=== PATIENT | female | born 1995 | race Caucasian/White ===

== ENCOUNTER 2017-02-18 05:40 | Emergency (ER) | payer OTHER | END 2017-02-18 06:45 | disposition home or self-care (01) | LOC: ERS 05:40 | DX: J11.1 Influenza due to unidentified influenza virus with other respiratory manifestations (principal); F41.9 Anxiety disorder, unspecified; E05.90 Thyrotoxicosis, unspecified without thyrotoxic crisis or storm | CPT/HCPCS: 99283 ==